=== PATIENT | female | born 2000 | race African-American/Black ===

== ENCOUNTER 2019-10-18 23:26 | Emergency (ER) | payer MEDICAID ==
[~2019-10-18] VITALS: Ht 162.6 cm; Wt 70.0 kg
[2019-10-19] MEDS ORDERED: SODIUM CHLORIDE 0.9% 1,000 ML IV ONE (00:45)
[2019-10-19] MEDS ORDERED: MORPHINE SULFATE 2 MG/ML CPJ (NOT FOR IM USE) IV ONE (00:45)
[2019-10-19 04:37] VITALS: BP 133/74
== END 2019-10-19 04:40 | disposition home or self-care (01) ==
LOC: ER 23:26
DX: S02.85XA Fracture of orbit, unspecified, initial encounter for closed fracture (principal); X58.XXXA Exposure to other specified factors, initial encounter; Y93.89 Activity, other specified; Y92.89 Other specified places as the place of occurrence of the external cause; Y99.8 Other external cause status
CPT/HCPCS: 70450; 70486; 71045; 72125; 73110; 73590; 73610; 81025; 93005; 96374; 99285; J2270; J7030